=== PATIENT | female | born 1980 | race Caucasian/White ===

== ENCOUNTER 2016-12-07 09:46 | Emergency (ER) | payer MEDICAID, OTHER ==
[~2016-12-07] VITALS: Ht 170.2 cm; Wt 115.3 kg
[2016-12-07 10:30] LABS: Urine Bilirubin Negative (Negative); Urine Color Yellow (Yellow); Urine Nitrite Negative (Negative); Urine RBC 8 /hpf (0 - 4); Urine Squamous Epithelial Cell FEW /hpf (<5); Urine Urobilinogen Normal (Negative); Urine pH 5.5 (5.0-8.0)
[2016-12-07 10:39] LABS: Urine Blood 2+ /uL (Negative); Urine Glucose 4+ mg/dL (Normal); Urine Ketone 3+ (Negative)
[2016-12-07 11:00] LABS: Basophils # (auto) 0.1 uL; Basophils % (auto) 0.7 % (0.0-2.0); Eosinophils # (auto) 0.3 uL; Eosinophils % (auto) 3.6 % (0.0-7.0); Hematocrit 47.1 % (36.0-46.0); Hemoglobin 15.8 g/dL (12.2-16.2); Lymphocytes # (auto) 1.9 uL; Lymphocytes % (auto) 20.2 % (10.0-50.0); Mean Corpuscular Hemoglobin 31.9 pg (28.0-32.0); Mean Corpuscular Hgb Conc. 33.7 g/dL (32.0-36.0); Mean Corpuscular Volume 94.7 fL (80.0-100.0); Mean Platelet Volume 8.9 fL (7.4-10.4); Monocytes # (auto) 0.9 uL; Monocytes % (auto) 9.5 % (0.0-12.0); Neutrophils # (auto) 6.1 uL; Platelet Count (auto) 435 10^3/uL (140-450); Red Cell Distribution Width 12.7 % (11.6-16.0); White Blood Cell 9.2 10^3/uL (4.4-10.8)
[2016-12-07 11:21] LABS: Albumin 3.8 g/dL (3.4-5.0); BUN/Creatinine Ratio 8.2; Bilirubin, Total 0.4 mg/dL (0.2-1.0); Calcium 8.6 mg/dL (8.5-10.1); Potassium 4.3 mmol/L (3.5-5.1); Total Protein 7.8 g/dL (6.4-8.2)
[2016-12-07 12:56] VITALS: BP 122/55
== END 2016-12-07 13:37 | disposition home or self-care (01) ==
LOC: ER 09:58
DX: J20.9 Acute bronchitis, unspecified (principal); R11.0 Nausea; F17.210 Nicotine dependence, cigarettes, uncomplicated; F12.10 Cannabis abuse, uncomplicated; E11.9 Type 2 diabetes mellitus without complications
CPT/HCPCS: 36415; 71020; 80053; 81001; 81025; 82962; 85025

== ENCOUNTER 2017-08-21 08:41 | Emergency (ER) | payer MEDICAID ==
[~2017-08-21] VITALS: Ht 170.2 cm; Wt 116.6 kg
[2017-08-21 08:43] VITALS: BP 152/82
== END 2017-08-21 09:56 | disposition home or self-care (01) ==
LOC: ER 08:41
DX: T19.2XXA Foreign body in vulva and vagina, initial encounter (principal); E11.9 Type 2 diabetes mellitus without complications; F12.10 Cannabis abuse, uncomplicated; Z98.890 Other specified postprocedural states; X58.XXXA Exposure to other specified factors, initial encounter; Y93.89 Activity, other specified; Y99.8 Other external cause status; Y92.89 Other specified places as the place of occurrence of the external cause

== ENCOUNTER 2017-12-22 13:52 | Emergency (ER) | payer MEDICAID ==
[~2017-12-22] VITALS: Ht 157.5 cm; Wt 113.4 kg
[2017-12-22 14:58] LABS: Basophils # (auto) 0.1 uL; Eosinophils # (auto) 0 uL; Monocytes # (auto) 0.5 uL
[2017-12-22 15:00] LABS: Eosinophils % (auto) 0.2 % (0.0-7.0); Hematocrit 44.1 % (36.0-46.0); Lymphocytes # (auto) 1.4 uL; Lymphocytes % (auto) 10.3 % (10.0-50.0); Mean Corpuscular Hemoglobin 32.7 pg (28.0-32.0); Mean Corpuscular Volume 96.1 fL (80.0-100.0); Neutrophils # (auto) 11.3 uL; Neutrophils % (auto) 84.5 % (37.0-80.0); Platelet Count (auto) 473 10^3/uL (140-450); Red Blood Cells 4.59 10^6/uL (4.0-5.20); Red Cell Distribution Width 12.8 % (11.8-14.3); White Blood Cell 13.3 10^3/uL (4.4-10.8)
[2017-12-22 15:15] LABS: Albumin 3.9 g/dL (3.4-5.0); BUN/Creatinine Ratio 21.3; Bilirubin, Total 0.6 mg/dL (0.2-1.0); Calcium 8.5 mg/dL (8.5-10.1); Total Protein 8.1 g/dL (6.4-8.2)
[2017-12-22 15:34] LABS: Urine Bacteria NONE SEEN /hpf (None Seen); Urine Blood Negative /uL (Negative); Urine Specific Gravity 1.015 (1.001-1.035); Urine WBC <1 /hpf (0 - 5)
[2017-12-22 19:04] VITALS: BP 104/67
== END 2017-12-22 20:53 | disposition home or self-care (01) ==
LOC: ER 13:52
DX: R51 Headache (principal); E11.649 Type 2 diabetes mellitus with hypoglycemia without coma; F17.210 Nicotine dependence, cigarettes, uncomplicated
CPT/HCPCS: 36415; 70450; 80053; 81001; 82962; 85025; 93005